=== PATIENT | male | born 1955 | race Two or more races ===

== ENCOUNTER 2017-07-25 09:37 | Day surgery (SDC) | payer OTHER ==
[~2017-07-25 09:37] MED LIST: 0.9 % SODIUM CHLORIDE 10 ML DISP.SYRIN. IV; LIDOCAINE 1% PF 2 ML VIAL. ID; MORPHINE SULFATE 2 MG/ML DISP.SYRIN. IV; ONDANSETRON PF 4 MG/2 ML VIAL. IV; PROCHLORPERAZINE 10 MG/2 ML VIAL. IV; fentaNYL PF VIAL 100 MCG/2 ML VIAL IV
[2017-07-25] MEDS: IV RINGERS,LACTATED 1000ML 1,000 ML IV (10:36)
[2017-07-25 10:53] LABS: ANION GAP 12 (6-14); BLOOD UREA NITROGEN 9 mg/dL (8-26); CALCIUM 9.3 mg/dL (8.5-10.1); CARBON DIOXIDE 23 mmol/L (21-32); CHLORIDE 103 mmol/L (98-107); GFR 76.5; GLUCOSE 116 mg/dL (70-99); MAGNESIUM 2.2 mg/dL (1.8-2.4); POTASSIUM 3.8 mmol/L (3.5-5.1); SODIUM 138 mmol/L (136-145)
[2017-07-25] MEDS ORDERED: PROPOFOL 0 ML IV (10:58)
[2017-07-25] MEDS ORDERED: LIDOCAINE 2% PF Vial for OR 5 ML VIAL. ×2 (10:58→11:46)
[2017-07-25] MEDS ORDERED: BENZOCAINE ONE 20% MUCOSAL SPRAY. (10:59)
[2017-07-25] MEDS ORDERED: LIDOCAINE 2% TOPICAL JELLY 5GM TUBE. TP (10:59)
[2017-07-25] MEDS ORDERED: LIDOCAINE 2% VISCOUS 15 ML SOLUTION. (10:59)
[2017-07-25] MEDS ORDERED: PROPOFOL 20 ML IV (11:46)
== END 2017-07-25 13:30 | disposition home or self-care (01) ==
LOC: SURG 09:37
DX: I48.1 Persistent atrial fibrillation (principal); I48.92 Unspecified atrial flutter; E78.00 Pure hypercholesterolemia, unspecified; I10 Essential (primary) hypertension; E66.9 Obesity, unspecified; Z98.890 Other specified postprocedural states; F32.9 Major depressive disorder, single episode, unspecified; Z72.89 Other problems related to lifestyle; Z83.3 Family history of diabetes mellitus; Z82.49 Family history of ischemic heart disease and other diseases of the circulatory system; Z79.899 Other long term (current) drug therapy; Z87.891 Personal history of nicotine dependence
CPT/HCPCS: 36415; 80048; 83735; 92960; 93005; J2704

== ENCOUNTER 2018-02-08 10:22 | Day surgery (SDC) | payer OTHER ==
[~2018-02-08 10:22] MED LIST changes: -0.9 % SODIUM CHLORIDE 10 ML DISP.SYRIN. IV; +APIX5TAB PO; +ASPI-630 PO; +CHOL10003 PO; +DILT180C29 PO; +FENO54TA PO; +FLEC100T PO; +HYDROmorphone 2 MG/ML VIAL IV PRN; +IV RINGERS,LACTATED 1000ML 1,000 ML IV SCH; -LIDOCAINE 1% PF 2 ML VIAL. ID; +LIDOCAINE 1% PF 2 ML VIAL. ID PRN; +LISI1TAB3 PO; -MORPHINE SULFATE 2 MG/ML DISP.SYRIN. IV; +MORPHINE SULFATE 4 MG/ML VIAL. IV PRN; -ONDANSETRON PF 4 MG/2 ML VIAL. IV; -PROCHLORPERAZINE 10 MG/2 ML VIAL. IV; +PROCHLORPERAZINE 10 MG/2 ML VIAL. IV PRN; -fentaNYL PF VIAL 100 MCG/2 ML VIAL IV; +fentaNYL PF VIAL 100 MCG/2 ML VIAL IV PRN
--- NOTE | 2018-02-08 11:10 | EKG ---
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
[2018-02-08] MEDS ORDERED: PROPOFOL 20 ML IV ONE (12:20)
--- NOTE | 2018-02-08 12:40 | PDOC4 ---
PROCEDURE Procedure PROCEDURE External cardioversion INDICATIONS Atrial fibrillation COMPLICATIONS None PROCEDURAL DETAILS An informed consent was obtained from patient. Patient was given intravenous propofol by anesthesiology team for general anesthesia. Patient was then administered 200 J of synchronized biphasic DC current successful conversion of rhythm to sinus rhythm. He was hemodynamically stable without any neurological deficits at the end of procedure. He tolerated the procedure well. There were no immediate complications. CONCLUSIONS Successful cardioversion of atrial fibrillation to sinus rhythm. KAIT MENDOZA MD Feb 08, 2018 12:40
--- NOTE | 2018-02-08 13:03 | EKG ---
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
[2018-02-08 13:24] VITALS: BP 143/70
== END 2018-02-08 13:54 | disposition home or self-care (01) ==
LOC: SURG 10:22
PROVIDERS: ATTEND Internal Medicine Cardiovascular Disease
DX: I48.91 Unspecified atrial fibrillation (principal); I10 Essential (primary) hypertension; E78.5 Hyperlipidemia, unspecified; Z79.82 Long term (current) use of aspirin; Z79.899 Other long term (current) drug therapy; Z98.890 Other specified postprocedural states; Z87.891 Personal history of nicotine dependence
CPT/HCPCS: 92960; 93005; J2704

== ENCOUNTER 2018-12-30 08:33 | Day surgery (SDC) | payer BC ==
[~2018-12-30 08:33] MED LIST changes: -HYDROmorphone 2 MG/ML VIAL IV PRN; -LIDOCAINE 1% PF 2 ML VIAL. ID PRN; +LISI1TAB23 PO; -LISI1TAB3 PO; -MORPHINE SULFATE 4 MG/ML VIAL. IV PRN; -PROCHLORPERAZINE 10 MG/2 ML VIAL. IV PRN; -fentaNYL PF VIAL 100 MCG/2 ML VIAL IV PRN
[2018-12-30] MEDS ORDERED: PROPOFOL 20 ML IV ONE (09:45)
--- NOTE | 2018-12-30 09:59 | CARD ---
MR#: [id number] Date of Study: 12/30/2018 Ordering Physician: KAIT MENDOZA, Referring Physician: Beckie MNA: Amy Jones APPROVED REPORT EXAM: Two-dimensional and M-mode echocardiogram with Doppler and color Doppler. Other Information Quality : AverageHR: 57bpm INDICATION Atrial Fibrillation 2D DIMENSIONS RVDd3.4 (2.9-3.5cm)Left Atrium(2D)3.9 (1.6-4.0cm) IVSd1.3 (0.7-1.1cm)Aortic Root(2D)2.3 (2.0-3.7cm) LVDd4.3 (3.9-5.9cm)LVOT Diameter2.0 (1.8-2.4cm) PWd1.0 (0.7-1.1cm)LVDs2.7 (2.5-4.0cm) FS (%) 37.7 %SV57.0 ml LVEF(%)68.1 (>50%) Aortic Valve AoV Peak Hai.135.0cm/sAoV VTI29.4cm AO Peak GR.7.3mmHgLVOT Peak Hai.118.6cm/s AO Mean GR.4mmHgAVA (VMAX)2.86cm2 Mitral Valve MV E Ingpblep414.4cm/sMV E Peak Gr.8mmHg MV DECEL [id number] A Tkhiftmv74.6cm/s MV E Mean Gr.2mmHgE/A Ratio3.3 Pulmonary Valve PV Peak Yahrogbj16.7cm/s Tricuspid Valve TR P. Tzvjaclm139tl/sRAP OTZDFWTQ1wgCm TR Peak Gr.20hkMyDOAN73pjSw LEFT VENTRICLE The left ventricle is normal size. There is borderline septal left ventricular hypertrophy. The left ventricular systolic function is normal and the ejection fraction is within normal range. The Ejectio n Fraction is 60-65%. There is normal LV segmental wall motion. Tissue Doppler imaging reveals modera te left ventricular diastolic dysfunction. RIGHT VENTRICLE The right ventricle is mildly to moderately dilated. There is normal right ventricular wall thickness . The right ventricular systolic function is normal. ATRIA The left atrium size is normal. The right atrium size is normal. The interatrial septum is intact wit h no evidence for an atrial septal defect or patent foramen ovale as noted on 2-D or Doppler imaging. AORTIC VALVE The aortic valve is mildly thickened but opens well. Doppler and Color Flow revealed trace to mild ao rtic regurgitation. There is no significant aortic valvular stenosis. MITRAL VALVE The mitral valve is thickened but opens well. There is no evidence of mitral valve prolapse. There is no mitral valve stenosis. Doppler and Color-flow revealed trace to mild mitral regurgitation. TRICUSPID VALVE The tricuspid valve is normal in structure and function. Doppler and Color Flow revealed mild tricusp id regurgitation with an estimated PAP of 27 mmHg. There is no tricuspid valve stenosis. PULMONIC VALVE The pulmonary valve is normal in structure and function. Doppler and Color Flow revealed mild pulmoni c valvular regurgitation. There is no pulmonic valvular stenosis. GREAT VESSELS The aortic root is normal in size. The IVC is normal in size and collapses >50% with inspiration. PERICARDIAL EFFUSION There is no pleural effusion. There is no evidence of significant pericardial effusion. Critical Notification Critical Value: No <Conclusion> The left ventricular systolic function is normal and the ejection fraction is within normal range. Th e Ejection Fraction is 60-65%. There is normal LV segmental wall motion. Signed by : Trevor Benitez, Electronically Approved : 12/30/2018 09:59:16
--- NOTE | 2018-12-30 10:00 | EKG ---
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
[2018-12-30] MEDS ORDERED: IV NORMAL SALINE 1000ML BAG 1,000 ML IV SCH (10:15)
[2018-12-30 10:16] LABS: BASO % 1 % (0-3); EOS % 1 % (0-3); HEMATOCRIT 45.4 % (39.0-53.0); HEMOGLOBIN 14.8 g/dL (13.0-17.5); LYMPH # 1.2 x10^3/uL (1.0-4.8); LYMPH % 15 % (24-48); MEAN CORPUSCULAR HEMOGLOBIN 30 pg (25-35); MEAN CORPUSCULAR HGB CONC 33 g/dL (31-37); MEAN CORPUSCULAR VOLUME 91 fL (79-100); MONO # 0.7 x10^3/uL (0.0-1.1); MONO % 9 % (0-9); NEUT # 5.7 x10^3/uL (1.8-7.7); NEUT % 75 % (31-73); PLATELET COUNT 294 x10^3/uL (140-400); RED BLOOD COUNT 4.98 x10^6/uL (4.30-5.70); RED CELL DISTRIBUTION WIDTH 13.7 % (11.5-14.5); WHITE BLOOD COUNT 7.6 x10^3/uL (4.0-11.0)
[2018-12-30 10:42] LABS: CALCIUM 8.8 mg/dL (8.5-10.1); CREATININE 1.1 mg/dL (0.7-1.3); GFR 68.1; POTASSIUM 4.4 mmol/L (3.5-5.1)
--- NOTE | 2018-12-30 11:45 | EKG ---
[facility] [address] [place] [address] Test Date: 2018-12-30 Test Time: 11:42:12 Pat Name: ANJANA RETANA Department: Room: Gender: M Beck Tender: : 1955 Requested By: KAIT CELESTE Order Number: [id number] Reading MD: Kait Celeste Measurements Intervals [place] Rate: 51 P: 49 SC: 226 QRS: 20 QRSD: 86 T: 36 QT: 476 QTc: 441 Interpretive Statements SINUS RHYTHM ATRIAL PREMATURE COMPLEX(ES) PROLONGED SC INTERVAL Electronically Signed On 01-06-2019 15:14:03 INDUSTRIAL HYGIENE MANAGER by Kait Celeste
[2018-12-30 12:45] VITALS: BP 127/65
--- NOTE | 2018-12-30 12:51 | PDOC4 ---
PROCEDURE Procedure PROCEDURE External cardioversion INDICATIONS Atrial flutter COMPLICATIONS None PROCEDURAL DETAILS An informed consent was obtained from patient. Anesthesiology team induced general anesthesia with intravenous propofol. Patient was then given 200 J of synchronized biphasic DC current with successful conversion of patient's rhythm from atrial flutter to sinus rhythm. He was hemodynamically stable without any neurological deficits at the end of procedure. He tolerated the procedure well. There were no immediate complications. CONCLUSIONS Successful conversion of atrial flutter to sinus rhythm RECOMMENDATIONS Continue amiodarone for antiarrhythmic therapy and follow-up in 1 month KAIT MENDOZA MD Dec 30, 2018 12:51
[2018-12-30] MEDS ORDERED: AMIO200T4 PO (12:53)
== END 2018-12-30 13:38 | disposition home or self-care (01) ==
LOC: ECHO 08:33
PROVIDERS: ATTEND Internal Medicine Cardiovascular Disease
DX: I48.92 Unspecified atrial flutter (principal); I48.91 Unspecified atrial fibrillation; G47.30 Sleep apnea, unspecified; I10 Essential (primary) hypertension; E78.00 Pure hypercholesterolemia, unspecified; F32.9 Major depressive disorder, single episode, unspecified; E66.9 Obesity, unspecified; Z68.26 Body mass index [BMI] 26.0-26.9, adult; Z87.891 Personal history of nicotine dependence; Z72.89 Other problems related to lifestyle
CPT/HCPCS: 36415; 80048; 85025; 85610; 92960; 93005; 93306; J2704; J7030

== ENCOUNTER 2019-02-21 08:36 | Inpatient (IN) | payer BC ==
[~2019-02-21] VITALS: Ht 175.3 cm; Wt 82.6 kg
[~2019-02-21 08:36] MED LIST changes: +AMIO200T4 PO; -IV RINGERS,LACTATED 1000ML 1,000 ML IV SCH
[2019-02-21 09:16] LABS: BASO % 0 % (0-3); EOS % 1 % (0-3); HEMATOCRIT 41.9 % (39.0-53.0); HEMOGLOBIN 14.1 g/dL (13.0-17.5); LYMPH # 0.4 x10^3/uL (1.0-4.8); LYMPH % 6 % (24-48); MEAN CORPUSCULAR HEMOGLOBIN 31 pg (25-35); MEAN CORPUSCULAR HGB CONC 34 g/dL (31-37); MEAN CORPUSCULAR VOLUME 92 fL (79-100); MONO # 0.6 x10^3/uL (0.0-1.1); MONO % 9 % (0-9); NEUT # 5.8 x10^3/uL (1.8-7.7); NEUT % 84 % (31-73); PLATELET COUNT 256 x10^3/uL (140-400); RED BLOOD COUNT 4.54 x10^6/uL (4.30-5.70); RED CELL DISTRIBUTION WIDTH 15.9 % (11.5-14.5); WHITE BLOOD COUNT 6.9 x10^3/uL (4.0-11.0)
--- NOTE | 2019-02-21 09:22 | EKG ---
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
[2019-02-21 09:23] LABS: CALCIUM 9.2 mg/dL (8.5-10.1); CREATININE 1.3 mg/dL (0.7-1.3); GFR 56.1
[2019-02-21 09:29] LABS: ALBUMIN 4.1 g/dL (3.4-5.0); ALBUMIN/GLOBULIN RATIO 1.1 (1.0-1.7); TOTAL BILIRUBIN 0.5 mg/dL (0.2-1.0); TOTAL PROTEIN 7.8 g/dL (6.4-8.2)
--- NOTE | 2019-02-21 09:34 | PHYS DOC ---
Past Medical History Past Medical History: Arrhythmia, Hypertension Past Surgical History: Other Additional Past Surgical Histo: hernia repair Alcohol Use: Occasionally Drug Use: None Adult General Chief Complaint Chief Complaint: CHEST PAIN HPI HPI Patient is a 63 year old male with history of atrial fibrillation who presents with left sided chest pain for the past 12 hours. Pain is intermittent and lasts for several minutes at a time and waxes and wane. It is currently rated mild. Pain is nonradiating. It is not associated nausea shortness of breath or sweats. No pain swelling. No fever chills or sweats. No other acute symptoms or complaints. No other acute symptoms or complaints. [] Review of Systems Review of Systems Review of symptoms as per history of present illness. All other review symptoms are negative All other systems were reviewed and found to be within normal limits, except as documented in this note. Current Medications Current Medications Current Medications Medications (Trade) Dose Ordered Sig/Bruce Start Time Stop Time Status Last Admin Dose Admin Acetaminophen (Tylenol) 650 mg PRN Q6HRS PRN 02/21/19 10:00 UNV Al Hydroxide/Mg Hydroxide (Mylanta Plus Xs) 30 ml PRN Q4HRS PRN 02/21/19 10:00 UNV Aspirin (Children'S Aspirin) 81 mg DAILYWBKFT 02/21/19 11:00 Morphine Sulfate (Morphine Sulfate) 1 mg PRN Q10MIN PRN 02/21/19 10:00 Nitroglycerin (Nitrostat) 0.4 mg PRN Q5MIN PRN 02/21/19 10:00 Ondansetron HCl (Zofran) 4 mg PRN Q6HRS PRN 02/21/19 10:00 UNV Zolpidem Tartrate (Ambien) 5 mg PRN QHS PRN 02/21/19 10:00 UNV Allergies Allergies Allergies Coded Allergies Type Severity Reaction Last Updated Verified No Known Drug Allergies 12/30/18 No Physical Exam Physical Exam Constitutional: Well developed, well nourished, no acute distress, non-toxic appearance. [] HENT: Normocephalic, atraumatic, bilateral external ears normal, oropharynx moist, nose normal. [] Eyes: PERRLA, EOMI, conjunctiva normal. [] Neck: Normal range of motion. [] Cardiovascular:Heart rate regular rhythm, no murmur [] Lungs & Thorax: Bilateral breath sounds clear to auscultation. [] Abdomen: Bowel sounds normal, soft, no tenderness. [] Skin: Warm, dry, no erythema, no rash. [] Back: No tenderness, no CVA tenderness. [] Extremities: No tenderness, no edema. [] Neurologic: Alert and oriented X 3, normal motor function, normal sensory function, no focal deficits noted. [] Psychologic: Affect anxious, judgement normal, mood normal. [] Current Patient Data Vital Signs Vital Signs Date Time Temp Pulse Resp B/P (MAP) Pulse Ox O2 Delivery O2 Flow Rate FiO2 02/21/19 08:47 98.5 84 16 149/71 (97) 98 Room Air 98.5 Lab Values Laboratory Tests Test 02/21/19 08:55 White Blood Count 6.9 x10^3/uL (4.0-11.0) Red Blood Count 4.54 x10^6/uL (4.30-5.70) Hemoglobin 14.1 g/dL (13.0-17.5) Hematocrit 41.9 % (39.0-53.0) Mean Corpuscular Volume 92 fL (79-100) Mean Corpuscular Hemoglobin 31 pg (25-35) Mean Corpuscular Hemoglobin Concent 34 g/dL (31-37) Red Cell Distribution Width 15.9 % (11.5-14.5) H Platelet Count 256 x10^3/uL (140-400) Neutrophils (%) (Auto) 84 % (31-73) H Lymphocytes (%) (Auto) 6 % (24-48) L Monocytes (%) (Auto) 9 % (0-9) Eosinophils (%) (Auto) 1 % (0-3) Basophils (%) (Auto) 0 % (0-3) Neutrophils # (Auto) 5.8 x10^3/uL (1.8-7.7) Lymphocytes # (Auto) 0.4 x10^3/uL (1.0-4.8) L Monocytes # (Auto) 0.6 x10^3/uL (0.0-1.1) Eosinophils # (Auto) 0.0 x10^3/uL (0.0-0.7) Basophils # (Auto) 0.0 x10^3/uL (0.0-0.2) Sodium Level 136 mmol/L (136-145) Potassium Level 4.0 mmol/L (3.5-5.1) Chloride Level 102 mmol/L (98-107) Carbon Dioxide Level 26 mmol/L (21-32) Anion Gap 8 (6-14) Blood Urea Nitrogen 16 mg/dL (8-26) Creatinine 1.3 mg/dL (0.7-1.3) Estimated GFR (Cockcroft-Gault) 56.1 BUN/Creatinine Ratio 12 (6-20) Glucose Level 118 mg/dL (70-99) H Calcium Level 9.2 mg/dL (8.5-10.1) Total Bilirubin 0.5 mg/dL (0.2-1.0) Aspartate Amino Transferase (AST) 27 U/L (15-37) Alanine Aminotransferase (ALT) 16 U/L (16-63) Alkaline Phosphatase 89 U/L (46-116) Troponin I Quantitative < 0.017 ng/mL (0.000-0.055) Total Protein 7.8 g/dL (6.4-8.2) Albumin 4.1 g/dL (3.4-5.0) Albumin/Globulin Ratio 1.1 (1.0-1.7) Laboratory Tests 02/21/19 08:55 Laboratory Tests 02/21/19 08:55 EKG EKG EKG: Reviewed] Radiology/Procedures Radiology/Procedures [CXR: NAD on [facility] ED review] Course & Med Decision Making Course & Med Decision Making Pertinent Labs and Imaging studies reviewed. (See chart for details) [CP resolved while in the ED. Will admit with anticipated cardiology consult. ] Dragon Disclaimer Dragon Disclaimer This electronic medical record was generated, in whole or in part, using a voice recognition dictation system. Departure Departure Impression: Primary Impression: Chest pain Disposition: ADMITTED INPATIENT Condition: GOOD Referrals: NON,STAFF (PCP) GUILLERMO CRUZ DO Feb 21, 2019 09:34
--- NOTE | 2019-02-21 09:47 | RAD ---
CHEST AP ONLY Clinical indications: Chest pain today. COMPARISON: June 13, 2017. Findings: Chronic elevation of the right hemidiaphragm is unchanged. No new lung infiltrate or pleural effusion or pulmonary edema or lung mass or pneumothorax is seen. The heart size, pulmonary vasculature, mediastinum and both viral are stable. Impression: No new radiographic abnormality is seen. Electronically signed by: Martell Hinkle MD (02/21/2019 9:44 AM) [id number]
[2019-02-21] MEDS ORDERED: MAG HYDROX/ALUMINUM HYD/SIMETH 30 ML ORAL.SUSP PO PRN (10:00)
[2019-02-21] MEDS ORDERED: ONDANSETRON PF 4 MG/2 ML VIAL. IV PRN (10:00)
[2019-02-21] MEDS ORDERED: ZOLPIDEM 5 MG TABLET. PO PRN (10:00)
[2019-02-21] MEDS ORDERED: ACETAMINOPHEN 325 MG TABLET. PO PRN (10:00)
[2019-02-21] MEDS ORDERED: NITROGLYCERIN SUBLINGUAL 0.4 MG BOTTLE OF 25. SL PRN ×2 (10:00)
[2019-02-21] MEDS ORDERED: MORPHINE SULFATE 2 MG/ML VIAL. IV PRN (10:00)
[2019-02-21] MEDS: ASPIRIN CHEWABLE 81 MG TABLET. PO SCH (10:35)
[2019-02-21 11:00] VITALS: BP 120/61
[2019-02-21] MEDS ORDERED: AMIO200T4 PO (11:24)
[2019-02-21] MEDS ORDERED: DILT300C24 PO (11:28)
--- NOTE | 2019-02-21 12:14 | PDOC2 ---
LEEANN LYONS REGULATORY AFFAIRS ANALYST 02/21/19 1214: CARDIAC CONSULT DATE OF CONSULT Date of Consult DATE: 02/21/19 TIME: 12:07 REASON FOR CONSULT Reason for Consult: CP REFERRING PHYSICIAN Referring Physician: Mac SOURCE Source: Chart review, Patient HISTORY OF PRESENT ILLNESS HISTORY OF PRESENT ILLNESS This is a pleasant 63 yo male admitted for complains of chest pain. Reports that last night his left chest pain woke him up. Reports that this is pressure to his left lower rib cage region which is worse when laying down and better when sitting up. Also duplicated with left arm extension and also with palpation. No significant SOA, no nausea or vomiting, no jaw discomfort, he does have some dizziness from time to time but no passing out. No palpitations. 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 This pain gets triger red at time with lifting otherwise going up and down stairs and performing his regular activities does not trigger this discomfort. He is worried that this is his heart. No recent injury, falls or MVA. His pain to his left rib cage region is easily reproducible with palpation and focal. He takes amiodarone and eliquis for PAFIB. He still has this pain but mainly with positional changes, moving his left arm. He has hx of RTC issues to his right shoulder but not to his left shoulder. Denies any heartburn and no significant ETOH use. No recent penumonia nor intractable coughing. No fever or chills. PAST MEDICAL HISTORY Past Medical History Cardiovascular: HTN, HLP, PAFIB Pulmonary: No pertinent hx CENTRAL NERVOUS SYSTEM: Other (No pertinent history) GI: No pertinent hx Heme/Onc: No pertinent hx Hepatobiliary: No pertinent hx Psych: No pertinent hx Musculoskeletal: Osteoarthritis Rheumatologic: No pertinent hx Infectious disease: No pertinent hx ENT: No pertinent hx Renal/: No pertinent hx Endocrine: No pertinent hx Dermatology: No pertinent hx PAST SURGICAL HISTORY Past Surgical History Arthroscopy (R RTC repair), Hernia Repair (umbilical), Other (cardiac ablation) FAMILY HISTORY Family History: Hypertension SOCIAL HISTORY Smoke: Quit ALCOHOL: occassional Drugs: None Lives: Alone CURRENT MEDICATIONS CURRENT MEDICATIONS Current Medications Medications (Trade) Dose Ordered Sig/Bruce Route PRN Reason Start Time Stop Time Status Last Admin Dose Admin Aspirin (Children'S Aspirin) 81 mg DAILYWBKFT PO 02/21/19 11:00 02/21/19 10:35 ALLERGIES ALLERGIES: Coded Allergies: No Known Drug Allergies (Unverified , 12/30/18) ROS Review of System 14 point ROS evaluated with pertinent positives noted per HPI PHYSICAL EXAM General: Alert, Oriented X3, Cooperative, No acute distress HEENT: Atraumatic, Mucous membr. moist/pink Lungs: Clear to auscultation, Normal air movement Heart: Regular rate (SR), Normal S1, Normal S2, No murmurs Abdomen: Soft, No tenderness Extremities: No cyanosis, No edema Skin: No breakdown, No significant lesion Neuro: Normal speech, Sensation intact Psych/Mental Status: Mental status NL, Mood NL MUSCULOSKELETAL: Osteoarthritic changes both hands, Other (focal pain to rib cage left side lower region with palpation) VITALS/I&O VITALS/I&O: Vital Signs Date Time Temp Pulse Resp B/P (MAP) Pulse Ox O2 Delivery O2 Flow Rate FiO2 02/21/19 11:00 97.8 76 18 120/61 (80) 97 Room Air 97.8 LABS Lab: Laboratory Tests Test 02/21/19 08:55 White Blood Count 6.9 x10^3/uL (4.0-11.0) Red Blood Count 4.54 x10^6/uL (4.30-5.70) Hemoglobin 14.1 g/dL (13.0-17.5) Hematocrit 41.9 % (39.0-53.0) Mean Corpuscular Volume 92 fL (79-100) Mean Corpuscular Hemoglobin 31 pg (25-35) Mean Corpuscular Hemoglobin Concent 34 g/dL (31-37) Red Cell Distribution Width 15.9 % (11.5-14.5) H Platelet Count 256 x10^3/uL (140-400) Neutrophils (%) (Auto) 84 % (31-73) H Lymphocytes (%) (Auto) 6 % (24-48) L Monocytes (%) (Auto) 9 % (0-9) Eosinophils (%) (Auto) 1 % (0-3) Basophils (%) (Auto) 0 % (0-3) Neutrophils # (Auto) 5.8 x10^3/uL (1.8-7.7) Lymphocytes # (Auto) 0.4 x10^3/uL (1.0-4.8) L Monocytes # (Auto) 0.6 x10^3/uL (0.0-1.1) Eosinophils # (Auto) 0.0 x10^3/uL (0.0-0.7) Basophils # (Auto) 0.0 x10^3/uL (0.0-0.2) Sodium Level 136 mmol/L (136-145) Potassium Level 4.0 mmol/L (3.5-5.1) Chloride Level 102 mmol/L (98-107) Carbon Dioxide Level 26 mmol/L (21-32) Anion Gap 8 (6-14) Blood Urea Nitrogen 16 mg/dL (8-26) Creatinine 1.3 mg/dL (0.7-1.3) Estimated GFR (Cockcroft-Gault) 56.1 BUN/Creatinine Ratio 12 (6-20) Glucose Level 118 mg/dL (70-99) H Calcium Level 9.2 mg/dL (8.5-10.1) Total Bilirubin 0.5 mg/dL (0.2-1.0) Aspartate Amino Transferase (AST) 27 U/L (15-37) Alanine Aminotransferase (ALT) 16 U/L (16-63) Alkaline Phosphatase 89 U/L (46-116) Troponin I Quantitative < 0.017 ng/mL (0.000-0.055) Total Protein 7.8 g/dL (6.4-8.2) Albumin 4.1 g/dL (3.4-5.0) Albumin/Globulin Ratio 1.1 (1.0-1.7) Laboratory Tests 02/21/19 08:55 Laboratory Tests 02/21/19 08:55 ECHOCARDIOGRAM ECHOCARDIOGRAM <Conclusion> The left ventricular systolic function is normal and the ejection fraction is within normal range. The Ejection Fraction is 60-65%. There is normal LV segmental wall motion. DATE: 12/30/18 0956 STRESS TEST STRESS TEST Conclusion 1. Treadmill exercise cardioisotope stress test did not show any evidence of ischemia or infarct. 2. Normal left ventricular systolic function with ejection fraction calculated at 70%. 3. Patient had good activity tolerance. Low risk for cardiac events. DATE: 06/14/17 1214 ASSESSMENT/PLAN ASSESSMENT/PLAN 1. Atypical CP: suspect MSK 2. HTN: controlled 3. Hx of PAFIB: past cardioversion and ablation. Maintaining SR Recommendations 1. Lidoderm to left rib cage. Consider voltaren gel 2. Doubt ACS but pt would like to stay overnight. Trend troponin and monitor rhythm 3. Continue home cardizem, amiodarone, eliquis. KAIT MENDOZA MD 02/22/19 0826: CARDIAC CONSULT ASSESSMENT/PLAN ASSESSMENT/PLAN Patient seen and examined 02/21/19. Agree with JUDO TEACHER's assessment and plan. CP with atypical features and most probably musculoskeletal AK ruled out PAF s/p ablation, maintaining SR Recent 2D echo showed normal LVF Continue current meds including amiodarone and eliquis OK for DC from cardiac standpoint Thank you for your consultation LEEANN LYONS APRN Feb 21, 2019 12:14 KAIT MENDOZA MD Feb 22, 2019 08:26
[2019-02-21] MEDS: LIDOCAINE (700MG/PATCH) PATCH. TD SCH (14:11)
[2019-02-21 15:00] VITALS: BP 141/63
--- NOTE | 2019-02-21 17:56 | PDOC1 ---
History and Physical Date of Admission Date of Admission 02/21/2019 Identification/Chief Complaint Chief Complaint My chest hurt Problems: (1) Chest pain Source Source: Patient History of Present Illness History of Present Illness Patient is a 63-year-old gentleman with past medical history of atrial fibrillation was in his usual state of health until the evening prior to his admission when he felt chest discomfort over his left side intercostal pain that woke him up from his sleep. The patient also referred radiation to his arm and almost called 911 in the middle of the night. He decided to go back to sleep but this morning given that the pain has recurred and given that he has atrial fibrillation got concerned that this may be related to his underlying cardiac disease. His initial workup in the emergency department has been negative. The patient has a pretty physical activity but denies lifting heavy objects past 25 pounds. The patient denies angina-type of symptoms but he does give a history of shortness of breath associated with the discomfort that he suffered yesterday. He describes the pain as a sharp sensation 5 out of 10 intensity no aggravating factors alleviating factors no associated nausea vomiting no sensation of impending doom. No diaphoresis. Patient denies recent upper respiratory tract infection symptoms no cough or sputum production no pleurisy no other symptoms have been reported. We have been asked to admit the patient for cardiac rule out Past Medical History Cardiovascular: HTN, Other Pulmonary: No pertinent hx CENTRAL NERVOUS SYSTEM: Other GI: No pertinent hx Heme/Onc: No pertinent hx Hepatobiliary: No pertinent hx Psych: No pertinent hx Rheumatologic: No pertinent hx Infectious disease: No pertinent hx Renal/: No pertinent hx Endocrine: No pertinent hx Past Surgical History Past Surgical History: Other Family History Family History: Hypertension Social History Smoke: Quit ALCOHOL: occassional Drugs: None Current Problem List Problem List Problems Medical Problems: (1) Chest pain Status: Acute Current Medications Current Medications Current Medications Medications (Trade) Dose Ordered Sig/Bruce Start Time Stop Time Status Last Admin Dose Admin Acetaminophen (Tylenol) 650 mg PRN Q6HRS PRN 02/21/19 10:00 Al Hydroxide/Mg Hydroxide (Mylanta Plus Xs) 30 ml PRN Q4HRS PRN 02/21/19 10:00 Amiodarone HCl (Cordarone) 200 mg DAILY 02/22/19 09:00 Apixaban (Eliquis) 5 mg BID 02/21/19 21:00 Aspirin (Children'S Aspirin) 81 mg DAILYWBKFT 02/21/19 11:00 02/21/19 10:35 81 MG Diltiazem HCl (Cardizem 24hr Cd) 300 mg DAILY 02/21/19 17:30 Fenofibrate (Lofibra) 54 mg DAILY 02/22/19 09:00 Lidocaine (Lidoderm) 1 patch DAILY 02/21/19 13:30 02/21/19 14:11 1 PATCH Miscellaneous (Lidoderm Patch Removal) 1 ea QHS 02/21/19 21:00 Morphine Sulfate (Morphine Sulfate) 1 mg PRN Q10MIN PRN 02/21/19 10:00 Nitroglycerin (Nitrostat) 0.4 mg PRN Q5MIN PRN 02/21/19 10:00 Ondansetron HCl (Zofran) 4 mg PRN Q6HRS PRN 02/21/19 10:00 Zolpidem Tartrate (Ambien) 5 mg PRN QHS PRN 02/21/19 10:00 Allergies Allergies Allergies Coded Allergies Type Severity Reaction Last Updated Verified No Known Drug Allergies 12/30/18 No ROS Review of System CONSTITUTIONAL: No fever or chills EYES: No recent changes SKIN: No rash or itching CARDIOVASCULAR: No chest pain, syncope, palpitations, or edema RESPIRATORY: No SOB or cough GASTROINTESTINAL: No nausea, vomiting or abdominal pain NEUROLOGICAL: No headaches or weakness ENDOCRINE: No cold or heat intolerance GENITOURINARY: No urgency or frequency of urination MUSCULOSKELETAL: No back pain or joint pain LYMPHATICS: No enlarged lymph nodes PSYCHIATRIC: No anxiety or depression Physical Exam Physical Exam Gen.: well-developed well-nourished in no apparent distress Head: Normal shape atraumatic Eyes: Pupils equal reactive to light and accommodation, normal conjunctivae and lids Ears: Normal shape Nose: Normal shape no trauma Mouth: No exudates of the back of throat no thrush no lesions Neck: Supple no JVD no carotid bruit or lymphadenopathy no thyromegaly Chest: Lungs clear to auscultation with good inspiratory effort no crackles rales or rhonchi Cardiovascular: S1-S2 regular rhythm no murmurs gallops or rubs Abdomen: Bowel sounds present soft nontender no hepatosplenomegaly appreciated sign Extremities: No clubbing no cyanosis no edema peripheral pulses palpated bilaterally Neurological: Alert awake oriented in person time place and situation, cranial nerves II through XII intact, no motor or sensory deficits appreciated Psych: Appropriate mood, cooperative Vitals Vitals Vital Signs Date Time Temp Pulse Resp B/P (MAP) Pulse Ox O2 Delivery O2 Flow Rate FiO2 02/21/19 15:00 97.8 85 18 141/63 (89) 96 Room Air 97.8 Labs Labs Laboratory Tests Test 02/21/19 08:55 02/21/19 13:45 White Blood Count 6.9 x10^3/uL (4.0-11.0) Red Blood Count 4.54 x10^6/uL (4.30-5.70) Hemoglobin 14.1 g/dL (13.0-17.5) Hematocrit 41.9 % (39.0-53.0) Mean Corpuscular Volume 92 fL (79-100) Mean Corpuscular Hemoglobin 31 pg (25-35) Mean Corpuscular Hemoglobin Concent 34 g/dL (31-37) Red Cell Distribution Width 15.9 % (11.5-14.5) Platelet Count 256 x10^3/uL (140-400) Neutrophils (%) (Auto) 84 % (31-73) Lymphocytes (%) (Auto) 6 % (24-48) Monocytes (%) (Auto) 9 % (0-9) Eosinophils (%) (Auto) 1 % (0-3) Basophils (%) (Auto) 0 % (0-3) Neutrophils # (Auto) 5.8 x10^3/uL (1.8-7.7) Lymphocytes # (Auto) 0.4 x10^3/uL (1.0-4.8) Monocytes # (Auto) 0.6 x10^3/uL (0.0-1.1) Eosinophils # (Auto) 0.0 x10^3/uL (0.0-0.7) Basophils # (Auto) 0.0 x10^3/uL (0.0-0.2) Sodium Level 136 mmol/L (136-145) Potassium Level 4.0 mmol/L (3.5-5.1) Chloride Level 102 mmol/L (98-107) Carbon Dioxide Level 26 mmol/L (21-32) Anion Gap 8 (6-14) Blood Urea Nitrogen 16 mg/dL (8-26) Creatinine 1.3 mg/dL (0.7-1.3) Estimated GFR (Cockcroft-Gault) 56.1 BUN/Creatinine Ratio 12 (6-20) Glucose Level 118 mg/dL (70-99) Calcium Level 9.2 mg/dL (8.5-10.1) Total Bilirubin 0.5 mg/dL (0.2-1.0) Aspartate Amino Transf (AST/SGOT) 27 U/L (15-37) Alanine Aminotransferase (ALT/SGPT) 16 U/L (16-63) Alkaline Phosphatase 89 U/L (46-116) Troponin I Quantitative < 0.017 ng/mL (0.000-0.055) < 0.017 ng/mL (0.000-0.055) Total Protein 7.8 g/dL (6.4-8.2) Albumin 4.1 g/dL (3.4-5.0) Albumin/Globulin Ratio 1.1 (1.0-1.7) Thyroid Stimulating Hormone (TSH) 1.895 uIU/mL (0.358-3.74) Laboratory Tests Test 02/21/19 08:55 02/21/19 13:45 White Blood Count 6.9 x10^3/uL (4.0-11.0) Red Blood Count 4.54 x10^6/uL (4.30-5.70) Hemoglobin 14.1 g/dL (13.0-17.5) Hematocrit 41.9 % (39.0-53.0) Mean Corpuscular Volume 92 fL (79-100) Mean Corpuscular Hemoglobin 31 pg (25-35) Mean Corpuscular Hemoglobin Concent 34 g/dL (31-37) Red Cell Distribution Width 15.9 % (11.5-14.5) Platelet Count 256 x10^3/uL (140-400) Neutrophils (%) (Auto) 84 % (31-73) Lymphocytes (%) (Auto) 6 % (24-48) Monocytes (%) (Auto) 9 % (0-9) Eosinophils (%) (Auto) 1 % (0-3) Basophils (%) (Auto) 0 % (0-3) Neutrophils # (Auto) 5.8 x10^3/uL (1.8-7.7) Lymphocytes # (Auto) 0.4 x10^3/uL (1.0-4.8) Monocytes # (Auto) 0.6 x10^3/uL (0.0-1.1) Eosinophils # (Auto) 0.0 x10^3/uL (0.0-0.7) Basophils # (Auto) 0.0 x10^3/uL (0.0-0.2) Sodium Level 136 mmol/L (136-145) Potassium Level 4.0 mmol/L (3.5-5.1) Chloride Level 102 mmol/L (98-107) Carbon Dioxide Level 26 mmol/L (21-32) Anion Gap 8 (6-14) Blood Urea Nitrogen 16 mg/dL (8-26) Creatinine 1.3 mg/dL (0.7-1.3) Estimated GFR (Cockcroft-Gault) 56.1 BUN/Creatinine Ratio 12 (6-20) Glucose Level 118 mg/dL (70-99) Calcium Level 9.2 mg/dL (8.5-10.1) Total Bilirubin 0.5 mg/dL (0.2-1.0) Aspartate Amino Transf (AST/SGOT) 27 U/L (15-37) Alanine Aminotransferase (ALT/SGPT) 16 U/L (16-63) Alkaline Phosphatase 89 U/L (46-116) Troponin I Quantitative < 0.017 ng/mL (0.000-0.055) < 0.017 ng/mL (0.000-0.055) Total Protein 7.8 g/dL (6.4-8.2) Albumin 4.1 g/dL (3.4-5.0) Albumin/Globulin Ratio 1.1 (1.0-1.7) Thyroid Stimulating Hormone (TSH) 1.895 uIU/mL (0.358-3.74) Images Images [facility] [address] [place] [address] IMAGING REPORT Signed PATIENT: ANJANA RETANA ACCOUNT: [id number] : 1955 LOCATION: ER AGE: 63 SEX: M EXAM STATUS: PRE ER ORD. PHYSICIAN: GUILLERMO CRUZ DO REASON: Chest pain today PROCEDURE: CHEST AP ONLY CHEST AP ONLY Clinical indications: Chest pain today. COMPARISON: June 13, 2017. Findings: Chronic elevation of the right hemidiaphragm is unchanged. No new lung infiltrate or pleural effusion or pulmonary edema or lung mass or pneumothorax is seen. The heart size, pulmonary vasculature, mediastinum and both viral are stable. Impression: No new radiographic abnormality is seen. Electronically signed by: Josue Hinkle MD (02/21/2019 9:44 AM) [id number] DICTATED and SIGNED BY: JOSUE HINKLE MD DATE: 02/21/19 0944 VTE Prophylaxis Ordered VTE Prophylaxis Devices: Yes VTE Pharmacological Prophylaxi: Yes Assessment/Plan Assessment/Plan Chest pain seems to be musculoskeletal in etiology but we will admit to rule out cardiac etiology initial assessment is negative Atrial fibrillation Chronic anticoagulation Essential hypertension Plan: Follow results of troponin Consult cardiology Resume home medications Further recommendations will be based on the clinical course We'll start muscle relaxant DVT prophylaxis on chronic anticoagulation Problem Qualifiers (1) Chest pain: Chest pain type: intercostal pain Qualified Codes: R07.82 - Intercostal pain ARUN MENEZES MD Feb 21, 2019 17:56
[2019-02-21] MEDS ORDERED: CYCLOBENZAPRINE 10 MG TABLET. PO PRN (19:15)
[2019-02-21] MEDS: METHOCARBAMOL 750 MG TABLET PO PRN (19:16)
[2019-02-21 19:55] VITALS: BP 132/63
[2019-02-21] MEDS: APIXABAN 5 MG TABLET. PO SCH (20:49)
[2019-02-21] MEDS ORDERED: PATCH REMOVAL. MC SCH (21:00)
[2019-02-21 23:25] VITALS: BP 133/67
[2019-02-22 03:50] VITALS: BP 132/77
[2019-02-22 05:36] LABS: BASO % 1 % (0-3); EOS # 0.1 x10^3/uL (0.0-0.7); EOS % 2 % (0-3); HEMATOCRIT 38.8 % (39.0-53.0); HEMOGLOBIN 13.2 g/dL (13.0-17.5); LYMPH # 0.7 x10^3/uL (1.0-4.8); LYMPH % 15 % (24-48); MEAN CORPUSCULAR HEMOGLOBIN 31 pg (25-35); MEAN CORPUSCULAR HGB CONC 34 g/dL (31-37); MEAN CORPUSCULAR VOLUME 92 fL (79-100); MONO # 0.6 x10^3/uL (0.0-1.1); MONO % 14 % (0-9); NEUT # 3.1 x10^3/uL (1.8-7.7); NEUT % 68 % (31-73); PLATELET COUNT 227 x10^3/uL (140-400); RED BLOOD COUNT 4.22 x10^6/uL (4.30-5.70); RED CELL DISTRIBUTION WIDTH 15.9 % (11.5-14.5); WHITE BLOOD COUNT 4.6 x10^3/uL (4.0-11.0)
[2019-02-22 06:11] LABS: ALBUMIN 3.5 g/dL (3.4-5.0); CALCIUM 8.4 mg/dL (8.5-10.1); POTASSIUM 3.6 mmol/L (3.5-5.1); TOTAL BILIRUBIN 0.4 mg/dL (0.2-1.0)
[2019-02-22 06:32] LABS: CHOLESTEROL/HDL RATIO 3.1
[2019-02-22 07:00] VITALS: BP 149/77
[2019-02-22] MEDS ORDERED: ANTI-COAG MONITOR BY PHARMACY. MC PRN (07:30)
[2019-02-22] MEDS: METHOCARBAMOL 750 MG TABLET PO PRN (08:51)
[2019-02-22] MEDS: ASPIRIN CHEWABLE 81 MG TABLET. PO SCH (08:52)
[2019-02-22] MEDS: LIDOCAINE (700MG/PATCH) PATCH. TD SCH (08:53)
[2019-02-22] MEDS: APIXABAN 5 MG TABLET. PO SCH (08:53)
--- NOTE | 2019-02-22 08:59 | PDOC ---
PROGRESS NOTES Chief Complaint Chief Complaint Atypical CP: this is MSK, costochondritis from a fall recently , likely work related HTN: controlled Hx of PAFIB: past cardioversion and ablation. Maintaining SR History of Present Illness History of Present Illness Mr Steven is a 63yo M w/ PMHx paroxysmal afib, HTN who was admitted 1/10 chest discomfort over his left side intercostal pain that woke him up from his sleep. The patient also referred radiation to his arm and almost called 911 in the middle of the night. He decided to go back to sleep but this morning given that the pain has recurred and given that he has atrial fibrillation got concerned that this may be related to his underlying cardiac disease. His initial workup in the emergency department has been negative. The patient has a pretty physical activity but denies lifting heavy objects past 25 pounds. The patient denies angina-type of symptoms but he does give a history of shortness of breath associated with the discomfort that he suffered yesterday. He describes the pain as a sharp sensation 5 out of 10 intensity no aggravating factors alleviating factors no associated nausea vomiting no sensation of impending doom. No ginette phoresis. Patient denies recent upper respiratory tract infection symptoms no cough or sputum production no pleurisy no other symptoms have been reported. We have been asked to admit the patient for cardiac rule out He had negative troponins and EKG, seen by cardiology in consultation, had negative echo and negative stress test recently. He did sustain a fall at work recently onto his left shoulder and back and has some bruised ribs, improved with lidoderm and tramadol, acetaminophen. With his eliquis, advised naproxen and ibuprofen are probably too high risk for bleeding. Vitals Vitals Vital Signs Date Time Temp Pulse Resp B/P (MAP) Pulse Ox O2 Delivery O2 Flow Rate FiO2 02/22/19 03:50 98.2 70 20 132/77 (95) 96 Room Air 98.2 Physical Exam General: Alert, Oriented X3, Cooperative, No acute distress Heart: Regular rate (SR), Normal S1, Normal S2, No murmurs Abdomen: Soft, No tenderness Extremities: No cyanosis, No edema Skin: No breakdown, No significant lesion Labs LABS Laboratory Tests Test 02/21/19 13:45 02/22/19 03:00 02/22/19 05:15 Troponin I Quantitative < 0.017 ng/mL (0.000-0.055) Thyroid Stimulating Hormone (TSH) 1.895 uIU/mL (0.358-3.74) Triglycerides Level 103 mg/dL (0-150) Cholesterol Level 172 mg/dL (0-200) LDL Cholesterol, Calculated 96 mg/dL (0-100) VLDL Cholesterol, Calculated 21 mg/dL (0-40) Non-HDL Cholesterol Calculated 117 mg/dL (0-129) HDL Cholesterol 55 mg/dL (40-60) Cholesterol/HDL Ratio 3.1 White Blood Count 4.6 x10^3/uL (4.0-11.0) Red Blood Count 4.22 x10^6/uL (4.30-5.70) Hemoglobin 13.2 g/dL (13.0-17.5) Hematocrit 38.8 % (39.0-53.0) Mean Corpuscular Volume 92 fL (79-100) Mean Corpuscular Hemoglobin 31 pg (25-35) Mean Corpuscular Hemoglobin Concent 34 g/dL (31-37) Red Cell Distribution Width 15.9 % (11.5-14.5) Platelet Count 227 x10^3/uL (140-400) Neutrophils (%) (Auto) 68 % (31-73) Lymphocytes (%) (Auto) 15 % (24-48) Monocytes (%) (Auto) 14 % (0-9) Eosinophils (%) (Auto) 2 % (0-3) Basophils (%) (Auto) 1 % (0-3) Neutrophils # (Auto) 3.1 x10^3/uL (1.8-7.7) Lymphocytes # (Auto) 0.7 x10^3/uL (1.0-4.8) Monocytes # (Auto) 0.6 x10^3/uL (0.0-1.1) Eosinophils # (Auto) 0.1 x10^3/uL (0.0-0.7) Basophils # (Auto) 0.0 x10^3/uL (0.0-0.2) Sodium Level 139 mmol/L (136-145) Potassium Level 3.6 mmol/L (3.5-5.1) Chloride Level 104 mmol/L (98-107) Carbon Dioxide Level 25 mmol/L (21-32) Anion Gap 10 (6-14) Blood Urea Nitrogen 14 mg/dL (8-26) Creatinine 1.0 mg/dL (0.7-1.3) Estimated GFR (Cockcroft-Gault) 76.0 BUN/Creatinine Ratio 14 (6-20) Glucose Level 105 mg/dL (70-99) Calcium Level 8.4 mg/dL (8.5-10.1) Total Bilirubin 0.4 mg/dL (0.2-1.0) Aspartate Amino Transf (AST/SGOT) 29 U/L (15-37) Alanine Aminotransferase (ALT/SGPT) 21 U/L (16-63) Alkaline Phosphatase 74 U/L (46-116) Total Protein 7.0 g/dL (6.4-8.2) Albumin 3.5 g/dL (3.4-5.0) Albumin/Globulin Ratio 1.0 (1.0-1.7) Assessment and Plan Assessmemt and Plan Problems Medical Problems: (1) Chest pain Status: Acute Comment Review of Relevant I have reviewed the following items [place] (where applicable) has been applied. Labs Laboratory Tests Test 02/21/19 08:55 02/21/19 13:45 02/22/19 03:00 02/22/19 05:15 White Blood Count 6.9 x10^3/uL (4.0-11.0) 4.6 x10^3/uL (4.0-11.0) Red Blood Count 4.54 x10^6/uL (4.30-5.70) 4.22 x10^6/uL (4.30-5.70) Hemoglobin 14.1 g/dL (13.0-17.5) 13.2 g/dL (13.0-17.5) Hematocrit 41.9 % (39.0-53.0) 38.8 % (39.0-53.0) Mean Corpuscular Volume 92 fL (79-100) 92 fL (79-100) Mean Corpuscular Hemoglobin 31 pg (25-35) 31 pg (25-35) Mean Corpuscular Hemoglobin Concent 34 g/dL (31-37) 34 g/dL (31-37) Red Cell Distribution Width 15.9 % (11.5-14.5) 15.9 % (11.5-14.5) Platelet Count 256 x10^3/uL (140-400) 227 x10^3/uL (140-400) Neutrophils (%) (Auto) 84 % (31-73) 68 % (31-73) Lymphocytes (%) (Auto) 6 % (24-48) 15 % (24-48) Monocytes (%) (Auto) 9 % (0-9) 14 % (0-9) Eosinophils (%) (Auto) 1 % (0-3) 2 % (0-3) Basophils (%) (Auto) 0 % (0-3) 1 % (0-3) Neutrophils # (Auto) 5.8 x10^3/uL (1.8-7.7) 3.1 x10^3/uL (1.8-7.7) Lymphocytes # (Auto) 0.4 x10^3/uL (1.0-4.8) 0.7 x10^3/uL (1.0-4.8) Monocytes # (Auto) 0.6 x10^3/uL (0.0-1.1) 0.6 x10^3/uL (0.0-1.1) Eosinophils # (Auto) 0.0 x10^3/uL (0.0-0.7) 0.1 x10^3/uL (0.0-0.7) Basophils # (Auto) 0.0 x10^3/uL (0.0-0.2) 0.0 x10^3/uL (0.0-0.2) Sodium Level 136 mmol/L (136-145) 139 mmol/L (136-145) Potassium Level 4.0 mmol/L (3.5-5.1) 3.6 mmol/L (3.5-5.1) Chloride Level 102 mmol/L (98-107) 104 mmol/L (98-107) Carbon Dioxide Level 26 mmol/L (21-32) 25 mmol/L (21-32) Anion Gap 8 (6-14) 10 (6-14) Blood Urea Nitrogen 16 mg/dL (8-26) 14 mg/dL (8-26) Creatinine 1.3 mg/dL (0.7-1.3) 1.0 mg/dL (0.7-1.3) Estimated GFR (Cockcroft-Gault) 56.1 76.0 BUN/Creatinine Ratio 12 (6-20) 14 (6-20) Glucose Level 118 mg/dL (70-99) 105 mg/dL (70-99) Calcium Level 9.2 mg/dL (8.5-10.1) 8.4 mg/dL (8.5-10.1) Total Bilirubin 0.5 mg/dL (0.2-1.0) 0.4 mg/dL (0.2-1.0) Aspartate Amino Transf (AST/SGOT) 27 U/L (15-37) 29 U/L (15-37) Alanine Aminotransferase (ALT/SGPT) 16 U/L (16-63) 21 U/L (16-63) Alkaline Phosphatase 89 U/L (46-116) 74 U/L (46-116) Troponin I Quantitative < 0.017 ng/mL (0.000-0.055) < 0.017 ng/mL (0.000-0.055) Total Protein 7.8 g/dL (6.4-8.2) 7.0 g/dL (6.4-8.2) Albumin 4.1 g/dL (3.4-5.0) 3.5 g/dL (3.4-5.0) Albumin/Globulin Ratio 1.1 (1.0-1.7) 1.0 (1.0-1.7) Thyroid Stimulating Hormone (TSH) 1.895 uIU/mL (0.358-3.74) Triglycerides Level 103 mg/dL (0-150) Cholesterol Level 172 mg/dL (0-200) LDL Cholesterol, Calculated 96 mg/dL (0-100) VLDL Cholesterol, Calculated 21 mg/dL (0-40) Non-HDL Cholesterol Calculated 117 mg/dL (0-129) HDL Cholesterol 55 mg/dL (40-60) Cholesterol/HDL Ratio 3.1 Laboratory Tests Test 02/21/19 13:45 02/22/19 03:00 02/22/19 05:15 Troponin I Quantitative < 0.017 ng/mL (0.000-0.055) Thyroid Stimulating Hormone (TSH) 1.895 uIU/mL (0.358-3.74) Triglycerides Level 103 mg/dL (0-150) Cholesterol Level 172 mg/dL (0-200) LDL Cholesterol, Calculated 96 mg/dL (0-100) VLDL Cholesterol, Calculated 21 mg/dL (0-40) Non-HDL Cholesterol Calculated 117 mg/dL (0-129) HDL Cholesterol 55 mg/dL (40-60) Cholesterol/HDL Ratio 3.1 White Blood Count 4.6 x10^3/uL (4.0-11.0) Red Blood Count 4.22 x10^6/uL (4.30-5.70) Hemoglobin 13.2 g/dL (13.0-17.5) Hematocrit 38.8 % (39.0-53.0) Mean Corpuscular Volume 92 fL (79-100) Mean Corpuscular Hemoglobin 31 pg (25-35) Mean Corpuscular Hemoglobin Concent 34 g/dL (31-37) Red Cell Distribution Width 15.9 % (11.5-14.5) Platelet Count 227 x10^3/uL (140-400) Neutrophils (%) (Auto) 68 % (31-73) Lymphocytes (%) (Auto) 15 % (24-48) Monocytes (%) (Auto) 14 % (0-9) Eosinophils (%) (Auto) 2 % (0-3) Basophils (%) (Auto) 1 % (0-3) Neutrophils # (Auto) 3.1 x10^3/uL (1.8-7.7) Lymphocytes # (Auto) 0.7 x10^3/uL (1.0-4.8) Monocytes # (Auto) 0.6 x10^3/uL (0.0-1.1) Eosinophils # (Auto) 0.1 x10^3/uL (0.0-0.7) Basophils # (Auto) 0.0 x10^3/uL (0.0-0.2) Sodium Level 139 mmol/L (136-145) Potassium Level 3.6 mmol/L (3.5-5.1) Chloride Level 104 mmol/L (98-107) Carbon Dioxide Level 25 mmol/L (21-32) Anion Gap 10 (6-14) Blood Urea Nitrogen 14 mg/dL (8-26) Creatinine 1.0 mg/dL (0.7-1.3) Estimated GFR (Cockcroft-Gault) 76.0 BUN/Creatinine Ratio 14 (6-20) Glucose Level 105 mg/dL (70-99) Calcium Level 8.4 mg/dL (8.5-10.1) Total Bilirubin 0.4 mg/dL (0.2-1.0) Aspartate Amino Transf (AST/SGOT) 29 U/L (15-37) Alanine Aminotransferase (ALT/SGPT) 21 U/L (16-63) Alkaline Phosphatase 74 U/L (46-116) Total Protein 7.0 g/dL (6.4-8.2) Albumin 3.5 g/dL (3.4-5.0) Albumin/Globulin Ratio 1.0 (1.0-1.7) Medications Current Medications Nitroglycerin (Nitrostat) 0.4 mg PRN Q5MIN PRN SL CHEST PAIN; Start 02/21/19 at 10:00; Stop 02/21/19 at 16:01; Status DC Aspirin (Children'S Aspirin) 81 mg DAILYWBKFT PO Last administered on 02/21/19at 10:35; Start 02/21/19 at 11:00 Nitroglycerin (Nitrostat) 0.4 mg PRN Q5MIN PRN SL CHEST PAIN; Start 02/21/19 at 10:00 Morphine Sulfate (Morphine Sulfate) 1 mg PRN Q10MIN PRN IV CHEST PAIN; Start 02/21/19 at 10:00 Acetaminophen (Tylenol) 650 mg PRN Q6HRS PRN PO MILD PAIN / TEMP; Start 02/21/19 at 10:00 Al Hydroxide/Mg Hydroxide (Mylanta Plus Xs) 30 ml PRN Q4HRS PRN PO HEARTBURN / GAS; Start 02/21/19 at 10:00 Ondansetron HCl (Zofran) 4 mg PRN Q6HRS PRN IV NAUSEA/VOMITING; Start 02/21/19 at 10:00 Zolpidem Tartrate (Ambien) 5 mg PRN QHS PRN PO INSOMNIA; Start 02/21/19 at 10:00 Lidocaine (Lidoderm) 1 patch DAILY TD Last administered on 02/21/19at 14:11; Start 02/21/19 at 13:30 Miscellaneous (Lidoderm Patch Removal) 1 ea QHS MC Last administered on 02/21/19at 21:00; Start 02/21/19 at 21:00 Amiodarone HCl (Cordarone) 200 mg DAILY PO ; Start 02/22/19 at 09:00 Apixaban (Eliquis) 5 mg BID PO Last administered on 02/21/19at 20:49; Start 02/21/19 at 21:00 Diltiazem HCl (Cardizem 24hr Cd) 300 mg DAILY PO ; Start 02/21/19 at 17:30 Fenofibrate (Lofibra) 54 mg DAILY PO ; Start 02/22/19 at 09:00 Methocarbamol (Robaxin) 750 mg Q8HRS PRN PO MUSCLE SPASMS Last administered on 02/21/19at 19:16; Start 02/21/19 at 18:00 Cyclobenzaprine HCl (Flexeril) 10 mg Q8HRS PRN PO MUSCLE SPASMS; Start 02/21/19 at 19:15; Status UNV Info (Anti-Coagulation Monitoring By Pharmacy) 1 each PRN DAILY PRN MC SEE COMMENTS; Start 02/22/19 at 07:30 Active Scripts Active Eliquis (Apixaban) 5 Mg Tablet 5 Mg PO BID Reported Diltiazem 24Hr ER (Cd) (Diltiazem HCl) 300 Mg Cap.er.24h 300 Mg PO DAILY Amiodarone Hcl 200 Mg Tablet 200 Mg PO DAILY Fenofibrate 54 Mg Tablet 1 Tab PO DAILY Vitals/I & O Vital Sign - Last 24 Hours 02/21/19 02/21/19 02/21/19 02/21/19 09:00 09:30 10:00 11:00 Temp 97.8 97.8 Pulse 74 74 78 76 Resp 20 18 18 18 B/P (MAP) 135/78 (97) 135/68 (90) 136/64 (88) 120/61 (80) Pulse Ox 96 95 97 97 O2 Delivery Room Air Room Air Room Air Room Air 02/21/19 02/21/19 02/21/19 02/21/19 11:30 15:00 19:24 19:55 Temp 97.8 99.0 97.8 99.0 Pulse 85 78 Resp 18 18 B/P (MAP) 141/63 (89) 132/63 (86) Pulse Ox 96 95 O2 Delivery Room Air Room Air Room Air Room Air 02/21/19 02/22/19 23:25 03:50 Temp 98.2 98.2 98.2 98.2 Pulse 62 70 Resp 20 20 B/P (MAP) 133/67 (89) 132/77 (95) Pulse Ox 95 96 O2 Delivery Room Air Room Air Intake and Output 02/21/19 02/21/19 02/22/19 15:00 23:00 07:00 Intake Total 420 ml 100 ml Balance 420 ml 100 ml Images CXR - Chronic elevation of the right hemidiaphragm is unchanged. No new lung infiltrate or pleural effusion or pulmonary edema or lung mass or pneumothorax is seen. The heart size, pulmonary vasculature, mediastinum and both viral are stable. Impression: No new radiographic abnormality is seen. DAVID KRUSE MD Feb 22, 2019 08:59
[2019-02-22] MEDS ORDERED: FENOFIBRATE 54 MG TABLET. PO SCH (09:00)
[2019-02-22] MEDS ORDERED: AMIODARONE HCL 200 MG TABLET. PO SCH (09:00)
--- NOTE | 2019-02-22 09:42 | NUR ---
C/O persistent cough, thick production clear in color. Has developed right chest wall muscular pain, right rib pain. Lidoderm patch applied to area. Cont. to monitor.
[2019-02-22 11:00] VITALS: BP 133/76
[2019-02-22] MEDS ORDERED: HYDROcodone/APAP 5/325MG 1 TAB TABLET PO PRN (11:15)
[2019-02-22] MEDS ORDERED: guaiFENesin DM 600/30MG 1 TAB TAB.ER.12H PO SCH ×2 (12:15→21:00)
[2019-02-22] MEDS ORDERED: TRAM50TA PO (14:26)
--- NOTE | 2019-02-22 14:32 | PDOC3 ---
Discharge Summary Visit Information Date of Admission: Feb 21, 2019 Date of Discharge: Feb 22, 2019 Admitting Diagnosis: Acute chest pain Final Diagnosis Problems Medical Problems: (1) Chest pain Status: Acute Brief Hospital Course Allergies Allergies Coded Allergies Type Severity Reaction Last Updated Verified No Known Drug Allergies 12/30/18 No Vital Signs Vital Signs Date Time Temp Pulse Resp B/P (MAP) Pulse Ox O2 Delivery O2 Flow Rate FiO2 02/22/19 13:34 16 Room Air 02/22/19 11:00 98.6 89 133/76 (95) 96 98.6 Lab Results Laboratory Tests Test 02/21/19 08:55 02/21/19 13:45 02/22/19 03:00 02/22/19 05:15 White Blood Count 6.9 x10^3/uL (4.0-11.0) 4.6 x10^3/uL (4.0-11.0) Red Blood Count 4.54 x10^6/uL (4.30-5.70) 4.22 x10^6/uL (4.30-5.70) Hemoglobin 14.1 g/dL (13.0-17.5) 13.2 g/dL (13.0-17.5) Hematocrit 41.9 % (39.0-53.0) 38.8 % (39.0-53.0) Mean Corpuscular Volume 92 fL (79-100) 92 fL (79-100) Mean Corpuscular Hemoglobin 31 pg (25-35) 31 pg (25-35) Mean Corpuscular Hemoglobin Concent 34 g/dL (31-37) 34 g/dL (31-37) Red Cell Distribution Width 15.9 % (11.5-14.5) 15.9 % (11.5-14.5) Platelet Count 256 x10^3/uL (140-400) 227 x10^3/uL (140-400) Neutrophils (%) (Auto) 84 % (31-73) 68 % (31-73) Lymphocytes (%) (Auto) 6 % (24-48) 15 % (24-48) Monocytes (%) (Auto) 9 % (0-9) 14 % (0-9) Eosinophils (%) (Auto) 1 % (0-3) 2 % (0-3) Basophils (%) (Auto) 0 % (0-3) 1 % (0-3) Neutrophils # (Auto) 5.8 x10^3/uL (1.8-7.7) 3.1 x10^3/uL (1.8-7.7) Lymphocytes # (Auto) 0.4 x10^3/uL (1.0-4.8) 0.7 x10^3/uL (1.0-4.8) Monocytes # (Auto) 0.6 x10^3/uL (0.0-1.1) 0.6 x10^3/uL (0.0-1.1) Eosinophils # (Auto) 0.0 x10^3/uL (0.0-0.7) 0.1 x10^3/uL (0.0-0.7) Basophils # (Auto) 0.0 x10^3/uL (0.0-0.2) 0.0 x10^3/uL (0.0-0.2) Sodium Level 136 mmol/L (136-145) 139 mmol/L (136-145) Potassium Level 4.0 mmol/L (3.5-5.1) 3.6 mmol/L (3.5-5.1) Chloride Level 102 mmol/L (98-107) 104 mmol/L (98-107) Carbon Dioxide Level 26 mmol/L (21-32) 25 mmol/L (21-32) Anion Gap 8 (6-14) 10 (6-14) Blood Urea Nitrogen 16 mg/dL (8-26) 14 mg/dL (8-26) Creatinine 1.3 mg/dL (0.7-1.3) 1.0 mg/dL (0.7-1.3) Estimated GFR (Cockcroft-Gault) 56.1 76.0 BUN/Creatinine Ratio 12 (6-20) 14 (6-20) Glucose Level 118 mg/dL (70-99) 105 mg/dL (70-99) Calcium Level 9.2 mg/dL (8.5-10.1) 8.4 mg/dL (8.5-10.1) Total Bilirubin 0.5 mg/dL (0.2-1.0) 0.4 mg/dL (0.2-1.0) Aspartate Amino Transf (AST/SGOT) 27 U/L (15-37) 29 U/L (15-37) Alanine Aminotransferase (ALT/SGPT) 16 U/L (16-63) 21 U/L (16-63) Alkaline Phosphatase 89 U/L (46-116) 74 U/L (46-116) Troponin I Quantitative < 0.017 ng/mL (0.000-0.055) < 0.017 ng/mL (0.000-0.055) Total Protein 7.8 g/dL (6.4-8.2) 7.0 g/dL (6.4-8.2) Albumin 4.1 g/dL (3.4-5.0) 3.5 g/dL (3.4-5.0) Albumin/Globulin Ratio 1.1 (1.0-1.7) 1.0 (1.0-1.7) Thyroid Stimulating Hormone (TSH) 1.895 uIU/mL (0.358-3.74) Triglycerides Level 103 mg/dL (0-150) Cholesterol Level 172 mg/dL (0-200) LDL Cholesterol, Calculated 96 mg/dL (0-100) VLDL Cholesterol, Calculated 21 mg/dL (0-40) Non-HDL Cholesterol Calculated 117 mg/dL (0-129) HDL Cholesterol 55 mg/dL (40-60) Cholesterol/HDL Ratio 3.1 Laboratory Tests Test 02/22/19 03:00 02/22/19 05:15 Triglycerides Level 103 mg/dL (0-150) Cholesterol Level 172 mg/dL (0-200) LDL Cholesterol, Calculated 96 mg/dL (0-100) VLDL Cholesterol, Calculated 21 mg/dL (0-40) Non-HDL Cholesterol Calculated 117 mg/dL (0-129) HDL Cholesterol 55 mg/dL (40-60) Cholesterol/HDL Ratio 3.1 White Blood Count 4.6 x10^3/uL (4.0-11.0) Red Blood Count 4.22 x10^6/uL (4.30-5.70) Hemoglobin 13.2 g/dL (13.0-17.5) Hematocrit 38.8 % (39.0-53.0) Mean Corpuscular Volume 92 fL (79-100) Mean Corpuscular Hemoglobin 31 pg (25-35) Mean Corpuscular Hemoglobin Concent 34 g/dL (31-37) Red Cell Distribution Width 15.9 % (11.5-14.5) Platelet Count 227 x10^3/uL (140-400) Neutrophils (%) (Auto) 68 % (31-73) Lymphocytes (%) (Auto) 15 % (24-48) Monocytes (%) (Auto) 14 % (0-9) Eosinophils (%) (Auto) 2 % (0-3) Basophils (%) (Auto) 1 % (0-3) Neutrophils # (Auto) 3.1 x10^3/uL (1.8-7.7) Lymphocytes # (Auto) 0.7 x10^3/uL (1.0-4.8) Monocytes # (Auto) 0.6 x10^3/uL (0.0-1.1) Eosinophils # (Auto) 0.1 x10^3/uL (0.0-0.7) Basophils # (Auto) 0.0 x10^3/uL (0.0-0.2) Sodium Level 139 mmol/L (136-145) Potassium Level 3.6 mmol/L (3.5-5.1) Chloride Level 104 mmol/L (98-107) Carbon Dioxide Level 25 mmol/L (21-32) Anion Gap 10 (6-14) Blood Urea Nitrogen 14 mg/dL (8-26) Creatinine 1.0 mg/dL (0.7-1.3) Estimated GFR (Cockcroft-Gault) 76.0 BUN/Creatinine Ratio 14 (6-20) Glucose Level 105 mg/dL (70-99) Calcium Level 8.4 mg/dL (8.5-10.1) Total Bilirubin 0.4 mg/dL (0.2-1.0) Aspartate Amino Transf (AST/SGOT) 29 U/L (15-37) Alanine Aminotransferase (ALT/SGPT) 21 U/L (16-63) Alkaline Phosphatase 74 U/L (46-116) Total Protein 7.0 g/dL (6.4-8.2) Albumin 3.5 g/dL (3.4-5.0) Albumin/Globulin Ratio 1.0 (1.0-1.7) Brief Hospital Course Mr Steven is a 63yo M w/ PMHx paroxysmal afib, HTN who was admitted / chest discomfort over his left side intercostal pain that woke him up from his sleep. The patient also referred radiation to his arm and almost called 911 in the middle of the night. He decided to go back to sleep but this morning given that the pain has recurred and given that he has atrial fibrillation got concerned that this may be related to his underlying cardiac disease. His initial workup in the emergency department has been negative. The patient has a pretty physical activity but denies lifting heavy objects past 25 pounds. The patient denies angina-type of symptoms but he does give a history of shortness of breath a ssociated with the discomfort that he suffered yesterday. He describes the pain as a sharp sensation 5 out of 10 intensity no aggravating factors alleviating factors no associated nausea vomiting no sensation of impending doom. No diaphoresis. Patient denies recent upper respiratory tract infection symptoms no cough or sputum production no pleurisy no other symptoms have been reported. We have been asked to admit the patient for cardiac rule out He had negative troponins and EKG, seen by cardiology in consultation, had negative echo and negative stress test recently. He did sustain a fall at work recently onto his left shoulder and back and has some bruised ribs, improved with lidoderm and tramadol, acetaminophen. With his eliquis, advised naproxen and ibuprofen are probably too high risk for bleeding. Atypical CP: this is MSK, costochondritis from a fall recently , likely work rel ated HTN: controlled Hx of PAFIB: past cardioversion and ablation. Maintaining SR Greater than 30 minutes spent on d/c Discharge Information Condition at Discharge: Improved Follow Up: Weeks (1) Disposition/Orders: D/C to Home Scheduled Amiodarone Hcl (Amiodarone Hcl) 200 Mg Tablet, 200 MG PO DAILY for heart, (Reported) Entered as Reported by: LASHAUN LUCAS on 02/21/19 1124 Last Action: Continued on 02/21/191705 by LASHAUN LUCAS Apixaban (Eliquis) 5 Mg Tablet, 5 MG PO BID, #60 Ref 1 Prescribed by: AUGUSTA QUAN on 06/15/17 1229 Last Action: Continued on 02/21/191705 by LASHAUN LUCAS Diltiazem HCl (Diltiazem 24Hr ER (Cd)) 300 Mg Cap.er.24h, 300 MG PO DAILY for heart, (Reported) Entered as Reported by: LASHAUN LUCAS on 02/21/19 1128 Last Action: Continued on 02/21/191705 by LASHAUN LUCAS Fenofibrate (Fenofibrate) 54 Mg Tablet, 1 TAB PO DAILY, #30 Ref 5 (Reported) Entered as Reported by: AUSTIN SELLERS on 06/15/17 1401 Last Action: Continued on 02/21/191705 by LASHAUN LUCAS Scheduled PRN Tramadol Hcl (Tramadol Hcl) 50 Mg Tablet, 50 MG PO PRN Q6HRS PRN for PAIN for 6 Days, #20 Prescribed by: DAVID KRUSE MD on 02/22/19 1427 DAVID KRUSE MD Feb 22, 2019 14:31
--- NOTE | 2019-02-22 15:40 | NUR ---
Discharge Note: [facility] Discharge instructions and discharge home medications reviewed with Patient and a copy given. All questions have been answered and understanding verbalized. The following instructions and handouts were given: chest wall pain, cough, virus vs bacteria Discontinued lines and drains: peripheral line. Patient discharged to Home or Self Care with Self via Ambulated
== END 2019-02-22 15:00 | disposition home or self-care (01) | DRG 206 ==
LOC: ER 08:36 → 2 SOUTH 09:45
PROVIDERS: ADMIT Internal Medicine; ATTEND Internal Medicine
DX: M94.0 Chondrocostal junction syndrome [Tietze] (principal); E78.5 Hyperlipidemia, unspecified; I10 Essential (primary) hypertension; I48.0 Paroxysmal atrial fibrillation; Z79.01 Long term (current) use of anticoagulants; Z82.49 Family history of ischemic heart disease and other diseases of the circulatory system; M19.90 Unspecified osteoarthritis, unspecified site
CPT/HCPCS: 36415; 71045; 80053; 80061; 84443; 84484; 85025; 93005; G0378

== ENCOUNTER → 2020-02-09 | Outpatient (CLI) | payer BC ==
[~2020-02-09] MED LIST changes: -AMIO200T4 PO; +AMIO200T6 PO; +DILT300C24 PO; +REGADENOSON 0.4 MG/5 ML DISP.SYRIN. IV ONE; +TRAM50TA PO
--- NOTE | 2020-02-09 15:02 | CARD ---
MR#: [id number] Date of Study: 02/09/2020 Ordering Physician: KAIT CELESTE, Referring Physician: KAIT CELESTE, Tech: Virginia Escamilla APPROVED REPORT EXAM: Two-dimensional and M-mode echocardiogram with Doppler and color Doppler. Other Information Quality : AverageHR: 68bpm INDICATION Atrial Fibrillation RISK FACTORS Hyperlipidemia 2D DIMENSIONS RVDd2.9 (2.9-3.5cm)Left Atrium(2D)3.3 (1.6-4.0cm) IVSd1.0 (0.7-1.1cm)Aortic Root(2D)3.6 (2.0-3.7cm) LVDd4.7 (3.9-5.9cm)LVOT Diameter2.1 (1.8-2.4cm) PWd1.0 (0.7-1.1cm)LVDs3.0 (2.5-4.0cm) FS (%) 36.9 %SV69.1 ml LVEF(%)66.7 (>50%) Aortic Valve AoV Peak Hai.106.3cm/sAoV VTI22.2cm AO Peak GR.4.5mmHgLVOT Peak Hai.78.8cm/s LVOT VTI 18.34cmAO Mean GR.2mmHg KANDACE (VMAX)1.88zz4WRJ (VTI)2.73cm2 AI P 1/2 Yjec743vt Mitral Valve MV E Gicsjzpx386.6cm/sMV DECEL SZUP401if MV A Ayvkragr69.9cm/sMV XNH64gz E/A Ratio1.9MVA (PHT)3.85cm2 TDI E/Lateral E'9.4E/Medial E'8.3 Pulmonary Valve PV Peak Ngcokhso296.4cm/sPV Peak Grad.4mmHg Tricuspid Valve TR P. Olsvprgl977vs/sRAP NRRBHQKT1azRm TR Peak Gr.23fgMuDTAZ81tyWr Pulmonary Vein S1 Drbfbozo58.4cm/sD2 Lnpfodix70.5cm/s LEFT VENTRICLE The left ventricle is normal size. There is normal left ventricular wall thickness. The left ventricu lar systolic function is normal. The Ejection Fraction is 55-60%. There is normal LV segmental wall m otion. The left ventricular diastolic function and filling is normal for age. RIGHT VENTRICLE The right ventricle is normal size. There is normal right ventricular wall thickness. The right ventr icular systolic function is normal. ATRIA The left atrium size is normal. The right atrium size is normal. The interatrial septum is intact wit h no evidence for an atrial septal defect or patent foramen ovale as noted on 2-D or Doppler imaging. AORTIC VALVE The aortic valve is normal in structure and function. Doppler and Color Flow revealed trace aortic re gurgitation. There is no significant aortic valvular stenosis. Calculated aortic valve area is 2.67 c m2 with maximum pressure gradient of 5 mmHg and mean pressure gradient of 3 mmHg. MITRAL VALVE The mitral valve is normal in structure and function. There is no evidence of mitral valve prolapse. There is no mitral valve stenosis. Doppler and Color-flow revealed trace mitral regurgitation. TRICUSPID VALVE The tricuspid valve is normal in structure and function. Doppler and Color Flow revealed trace tricus pid regurgitation with an estimated PAP of 31 mmHg. There is no tricuspid valve stenosis. PULMONIC VALVE The pulmonic valve is not well visualized. Doppler and Color Flow revealed trace pulmonic valvular re gurgitation. GREAT VESSELS The aortic root is normal in size. The ascending aorta is normal in size. The IVC was not well visual ized. PERICARDIAL EFFUSION There is no evidence of significant pericardial effusion. Critical Notification Critical Value: No <Conclusion> The left ventricular systolic function is normal. The Ejection Fraction is 55-60%. There is normal LV segmental wall motion. Trace mitral regurgitation. Trace tricuspid regurgitation with an estimated PAP of 31 mmHg. There is no evidence of significant pericardial effusion. Signed by : Kait Celeste, Electronically Approved : 02/09/2020 15:02:14
--- NOTE | 2020-02-09 15:22 | RAD ---
MR#: [id number] Date of Study: 02/09/2020 Ordering Physician: KAIT MENDOZA Referring Physician: TANJA MAN Tech: RT Flako Fajardo) (N) APPROVED REPORT Test Type: Pharmacological Stress Nurse/Tech: Kathy Simpson R.N. Test Indications: Afib Cardiac History: Afib w/ablation 8 yrs ago Medications: See Electronic Medical Record Medical History: See Electronic Medical Record Resting ECG: SR w 1st degree AVB. inverted T wave in lead III Resting Heart Rate: 72 bpm Resting Blood Pressure: 142/64mmHg Pretest Chest Pain: No chest pain Nurse/Tech Notes S1S2, lungs CTA Consent: The procedure was explained to the patient in lay terms. Informed consent was witnessed. Chris eout was entered into [employer]. History and Stress Test performed by RT Audra (R) (N) Pharm. Details Pharmacologic stress testing was performed using 0.4mg per 5ml of regadenoson given intravenously ove r 7-10 seconds. Stress Symptoms SOA, h/a POST EXERCISE Reason for Termination: Infusion complete Max HR: 85 bpm Max Blood Pressure: 142/59mmHg Blood Pressure response to exercise: Normal blood pressure response during stress. Heart Rate response to exercise: wnl Chest Pain: No. Arrhythmia: No. ST Change: No. INTERPRETATION Stress EKG Conclusion: Baseline EKG showed sinus rhythm. No ischemic changes at peak stress. No arr hythmias. Imaging Protocol IMAGE PROTOCOL: Rest Tc-99m/stress Tc-99m 1 day Rest: Stress: Viability: Radiopharm.Tc99m YdemvtgpbHx45r Sestamibi Dose10.7mCi 33mCi Duration 15min. 15min. Img Date 02/09/2020 02/09/2020 Inj-Img Xmvb61ail. 60min. Rest Admin Site:IV - Right AntecubitalAdministrator:RT Flako Zhu)(N) Stress Admin Site: IV - Right AntecubitalAdministrator: RT Flako Zhu)(N) STRESS DATA End Diast. Vol.113.0mlLVEDV index BSA57.0ml End Syst. Vol.28.0mlLVESV index BSA14.0ml Myocardial Ychm880.0gEject. Gxibzohr78.0% Stress Scores Regional WT1.00Summed WT1.00 Regional WM0.00Summed WM0.00 Study quality was good. Left Ventricular size was Normal at Rest and Stress. Lung uptake was . Left Ventricular ejection fraction is 74%. The rest and stress images show normal perfusion, normal contraction and thickening. LV Perf. Quant 17 Seg. SSS3.00 17 Seg. SRS1.00 17 Seg. SDS2.00 Stress Defect Extent (% LAD)0.00Rest Defect Extent (% LAD)0.00Rev. Defect Extent (% LAD)0.00 Stress Defect Extent (% LCX) 15.00Rest Defect Extent (% LCX)15.00Rev. Defect Extent (% LCX)0.00 Stress Defect Extent (% RCA)0.00Rest Defect Extent (% RCA)0.00Rev. Defect Extent (% RCA)0.00 Stress Defect Extent (% AMAURY)5.70Rest Defect Extent (% AMAURY)3.90Rev. Defect Extent (% AMAURY)0.20 Conclusion 1. Regadenoson cardioisotope stress test did not show any evidence of ischemia or infarct. 2. Normal left ventricular systolic function with ejection fraction calculated at 74%. 3. Low risk for cardiac events. Signed by : Kait Mendoza, Electronically Approved : 02/09/2020 15:21:41
== END ==
LOC: NM 08:32
PROVIDERS: ATTEND Internal Medicine Cardiovascular Disease
DX: I48.91 Unspecified atrial fibrillation (principal)
CPT/HCPCS: 78452; 93017; 93306; A9500; J2785

== ENCOUNTER → 2021-02-01 | Outpatient (CLI) | payer BC ==
[~2021-02-01] MED LIST changes: +AMIO200T53 PO; -AMIO200T6 PO; -LISI1TAB23 PO; +LISI1TAB35 PO; -REGADENOSON 0.4 MG/5 ML DISP.SYRIN. IV ONE
--- NOTE | 2021-02-02 09:24 | CARD ---
MR#: [id number] Date of Study: 02/01/2021 Ordering Physician: KAIT MENDOZA, Referring Physician: KAIT MENDOZA Tech: Anita Calderón [facility] APPROVED REPORT EXAM: Two-dimensional and M-mode echocardiogram with Doppler and color Doppler. Other Information Quality : AverageHR: 70bpm Rhythm : NSR INDICATION Dyspnea RISK FACTORS Hypertension Obesity 2D DIMENSIONS RVDd3.8 (2.9-3.5cm)Left Atrium(2D)4.5 (1.6-4.0cm) IVSd1.0 (0.7-1.1cm)Aortic Root(2D)3.6 (2.0-3.7cm) LVDd5.1 (3.9-5.9cm)LVOT Diameter2.4 (1.8-2.4cm) PWd1.1 (0.7-1.1cm)LVDs2.8 (2.5-4.0cm) FS (%) 45.4 %SV93.7 ml Aortic Valve AoV Peak Hai.144.7cm/sAoV VTI30.8cm AO Peak GR.8.4mmHgLVOT Peak Hai.120.9cm/s AO Mean GR.4mmHgAVA (VMAX)3.68cm2 AI P 1/2 Kgpb334mo Mitral Valve MV E Iisdtlzn270.9cm/sMV DECEL DOTI403kc MV A Bfevkvga65.3cm/sE/A Ratio2.6 Pulmonary Valve PV Peak Bwuxrdkt381.5cm/s Tricuspid Valve TR P. Zsopbufs475ki/sTR Peak Gr.30mmHg LEFT VENTRICLE The left ventricle is normal size. There is normal left ventricular wall thickness. The left ventricu lar systolic function is normal and the ejection fraction is within normal range. LV ejection fracti on of 55 to 60%. There is normal LV segmental wall motion. Transmitral Doppler flow pattern is Grade I-abnormal relaxation pattern. RIGHT VENTRICLE The right ventricle is normal size. There is normal right ventricular wall thickness. The right ventr icular systolic function is normal. ATRIA The left atrium size is normal. The right atrium size is normal. The interatrial septum is intact wit h no evidence for an atrial septal defect or patent foramen ovale as noted on 2-D or Doppler imaging. AORTIC VALVE The aortic valve is normal in structure and function. Doppler and Color Flow revealed trace aortic re gurgitation. There is no significant aortic valvular stenosis. MITRAL VALVE The mitral valve is normal in structure and function. There is no evidence of mitral valve prolapse. There is no mitral valve stenosis. Doppler and Color-flow revealed mild mitral regurgitation. TRICUSPID VALVE The tricuspid valve is normal in structure and function. Doppler and Color Flow revealed trace to mil d tricuspid regurgitation. Estimated PAP 35 mmHg. There is no tricuspid valve stenosis. PULMONIC VALVE The pulmonary valve is normal in structure and function. Doppler and Color Flow revealed mild pulmoni c valvular regurgitation. GREAT VESSELS The aortic root is normal in size. The ascending aorta is normal in size. The IVC is normal in size a nd collapses >50% with inspiration. PERICARDIAL EFFUSION There is no evidence of significant pericardial effusion. Critical Notification Critical Value: No <Conclusion> The left ventricle is normal size. The left ventricular systolic function is normal and the ejection fraction is within normal range. LV ejection fraction of 55 to 60%. Doppler and Color Flow revealed trace aortic regurgitation. There is no significant aortic valvular stenosis. Doppler and Color-flow revealed mild mitral regurgitation. Doppler and Color Flow revealed trace to mild tricuspid regurgitation. Estimated PAP 35 mmHg. Signed by : Moises Antonio MD Electronically Approved : 02/02/2021 09:24:25
== END ==
LOC: ECHO 07:58
PROVIDERS: ATTEND Internal Medicine Cardiovascular Disease
DX: I08.8 Other rheumatic multiple valve diseases (principal); I48.91 Unspecified atrial fibrillation
CPT/HCPCS: 93306